=== PATIENT | female | born 1985 | race Two or more races ===

== ENCOUNTER 2024-02-21 12:59 | Emergency (ER) | payer MEDICAID ==
[~2024-02-21] VITALS: Ht 152.4 cm; Wt 54.4 kg
[2024-02-21 13:08] VITALS: O2SAT 99
[2024-02-21 14:00] LABS: CLARITY URINE CLEAR (CLEAR); COLOR URINE YELLOW (YELLOW); GLUCOSE URINE NEGATIVE (NEGATIVE); KETONES URINE NEGATIVE (NEGATIVE); LEUKOCYTE ESTERASE URINE NEGATIVE (NEGATIVE); NITRITE URINE NEGATIVE (NEGATIVE); OCCULT BLOOD URINE NEGATIVE (NEGATIVE); PROTEIN URINE NEGATIVE (NEGATIVE); SPECIFIC GRAVITY URINE 1.023 (1.005-1.030)
[2024-02-21] MEDS ORDERED: LIDO700A15 TP (16:24)
[2024-02-21] MEDS ORDERED: METH-653 MT (16:24)
[2024-02-21] MEDS: KETOROLAC 15MG/ML VIAL IM ONE (16:40)
[2024-02-21 17:09] VITALS: BP 101/55; PULSE 81; RESP 18; TEMP 36.66960; O2SAT 99
== END 2024-02-21 17:09 | disposition home or self-care (01) ==
LOC: ER 12:59
DX: M54.9 Dorsalgia, unspecified (principal); Z98.890 Other specified postprocedural states; Z90.49 Acquired absence of other specified parts of digestive tract
CPT/HCPCS: 99283; 81003; 96372; J1885